=== PATIENT | female | born 2000 | race Caucasian/White ===

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

== ENCOUNTER 2022-08-12 14:38 | Emergency (ER) | payer BC, SELFPAY ==
[2022-08-12 14:41] VITALS: BP 123/81; PULSE 90; RESP 18; TEMP 37.2; O2SAT 98
[2022-08-12 15:14] VITALS: RESP 16
[2022-08-12 15:59] LABS: Abs Immature Grans 0.01 10^3/uL (0.0-0.06); Absolute Basophil Count 0.04 10^3/uL (0.0-0.2); Absolute Eosinophil Count 0.06 10^3/uL (0.0-0.7); Absolute Lymphocyte Count 1.59 10^3/uL (1.2-3.4); Absolute Monocyte Count 0.48 10^3/uL (0.1-0.8); Absolute Neutrophil Count 2.68 10^3/uL (1.2-6.7); Basophils % 0.8; Eosinophils % 1.2; HCT 33.3 % (36.0-46.0); HGB 11.4 g/dL (11.2-15.7); Immature Grans % 0.2; Lymphocytes % 32.7; MCH 29.9 pg (27.0-33.0); MCHC 34.2 % (32.0-36.0); MCV 87 fL (80-95); MPV 8.9 fL (8.0-11.0); Monocytes % 9.9; Neutrophils % 55.2; Platelet Count 252 10^3/uL (130-400); RBC 3.81 10^6/uL (3.93-5.22); RDW 12.3 % (11.7-14.6); RDW-SD 39.5 fL; WBC 4.86 10^3/uL (4.4-10.8)
[2022-08-12 16:19] LABS: ALT 28 U/L (14-59); AST 18 U/L (15-37); Alkaline Phosphatase 76 U/L (46-116); Anion Gap 10.1 mmol/L (3-11); BUN 10 mg/dL (7-18); Bilirubin, Total 0.3 mg/dL (0.2-1.0); CO2 28.9 mmol/L (21.0-32.0); CREATININE 0.8 mg/dL (0.55-1.02); Chloride 111 mmol/L (98-107); Estimated GFR 108.11 (mL/min/1.73m2); Glucose 87 mg/dL (74-106); Magnesium 1.6 mg/dL (1.8-2.4); Potassium 4.1 mmol/L (3.5-5.1); Sodium 150 mmol/L (136-145); Total Protein 7.7 g/dL (6.4-8.2)
--- NOTE | 2022-08-12 16:19 | ED.GENADUL_ITS ---
Discharge Plan Disposition Patient Disposition: Home Condition: Stable Discharge Details Clinical Impression: Acute hypernatremia, Hypomagnesemia Primary Care Provider: Aniya Saravia ED Provider: Flor Humphries Home Meds and New Rx's Prescriptions: Continued bupropion HCl 75 mg tablet 75 mg PO DAILY sertraline [Zoloft] 25 mg tablet 100 mg PO DAILY Nexplanon 68 mg Implant 1 implant SUBDERMAL DIRECTED No Action doxycycline hyclate 100 mg capsule 100 mg PO BID Qty: 42 0RF Discharge Instructions Instructions: Hypomagnesemia (ED) Additional Instructions: Today your sodium level was slightly elevated and your magnesium level is low. Please increase foods with high magnesium levels over the next few days and increase your water intake. No significant evidence for major bleeding requiring emergent blood transfusion. No signs of infection. No evidence for . Follow up with primary care provider in 3-5 days. Return to ED sooner if any worsening or concerns. Increase oral fluids. Stand Alone Forms: Work Release Referrals: Aniya Saravia [Primary Care Provider] - 3 days Discharge Data Discharge Date/Time-TO BE ENTERED AT DEPARTURE: 08/12/22 17:39 Medical Decision Making 22-year-old female with a past medical history of migraines presents to the ER with a chief complaint of lower back pain, diarrhea and had an episode of bright red blood per rectum. CBC CMP urinalysis magnesium hCG quant ordered by my colleague. CBC shows RBCs 3.81 hemoglobin 11.4 hematocrit 33.3, sodium is 150 potassium 4.1 chloride 111 m agnesium 1.6 hCG quant is less than 1. Urinalysis is within normal limits. Discussed results with patient who verbalized understanding. Instructed to follow-up with PCP or to return if any symptoms worse she verbalizes understanding. This text was generated using [employer]fol[employer]ation system, please disregard any oddities of phrase or misspellings. Lab Data Lab results reviewed: Yes I reviewed the patient's lab results. Labs: Laboratory Tests Range/Units 08/12/22 08/12/22 08/12/22 15:50 15:50 16:15 WBC (4.4-10.8) 10^3/uL 4.86 RBC (3.93-5.22) 10^6/uL 3.81 L Hgb (11.2-15.7) g/dL 11.4 Hct (36.0-46.0) % 33.3 L MCV (80-95) fL 87 MCH (27.0-33.0) pg 29.9 MCHC (32.0-36.0) % 34.2 RDW (11.7-14.6) % 12.3 Plt Count (130-400) 10^3/uL 252 MPV (8.0-11.0) fL 8.9 Immature Gran % 0.2 Neutrophils % 55.2 Lymphocytes % 32.7 Monocytes % 9.9 Eosinophils % 1.2 Basophils % 0.8 Nucleated RBC % (0.0-0.3) % 0.0 Absolute Neutrophils (1.2-6.7) 10^3/uL 2.68 Absolute Lymphocytes (1.2-3.4) 10^3/uL 1.59 Absolute Monocytes (0.1-0.8) 10^3/uL 0.48 Absolute Eosinophils (0.0-0.7) 10^3/uL 0.06 Absolute Basophils (0.0-0.2) 10^3/uL 0.04 Sodium (136-145) mmol/L 150 H Potassium (3.5-5.1) mmol/L 4.1 Chloride (98-107) mmol/L 111 H Carbon Dioxide (21.0-32.0) mmol/L 28.9 Anion Gap (3-11) mmol/L 10.1 BUN (7-18) mg/dL 10 Creatinine (0.55-1.02) mg/dL 0.8 Est GFR (CKD-EPI 2020) (mL/min/1.73m2) 108.11 Glucose (74-106) mg/dL 87 Calcium (8.5-10.1) mg/dL 9.0 Magnesium (1.8-2.4) mg/dL 1.6 L Total Bilirubin (0.2-1.0) mg/dL 0.3 AST (15-37) U/L 18 ALT (14-59) U/L 28 Alkaline Phosphatase (46-116) U/L 76 Total Protein (6.4-8.2) g/dL 7.7 Albumin (3.4-5.0) g/dL 4.0 Beta HCG, Quant (1-3) mIU/mL < 1 L Urine Color (Yellow) Yellow Urine Clarity (Clear) Clear Urine pH (5-8) 7.0 Ur Specific [place] (1.005-1.025) 1.015 Urine Protein (Negative) mg/dL Negative Urine Ketones (Negative) mg/dL Negative Urine Blood (Negative) Negative Urine Nitrite (Negative) Negative Urine Bilirubin (Negative) Negative Urine Urobilinogen (Up to 0.2) mg/dL 0.2 Ur Leukocyte Esterase (Negative) Negative Urine Glucose (Negative) mg/dL Negative HPI General Mode of arrival: ambulatory . Date/Time Provider Initiated Documentation: 08/12/22 14:51 . Limitations to Documentation: no limitations . Information obtained by: patient, RN notes reviewed and old records reviewed . HPI Narrative: 22-year-old female with a past medical history of migraines presents to the ER with a chief complaint of lower back pain, diarrhea and had an episode of bright red blood per rectum. And according to her RN note fever on and off for few days which she did not mention to me. She denies any problems urinating or burning with urination. She does have a little bit of nausea which has resolved. She did take ibuprofen prior to arrival. Other past medical history include anxiety and depression. She endorses occasional alcohol denies any drugs. Related Data Home Medications Medication Instructions Recorded Confirmed etonogestrel 68 mg subdermal 1 implant subdermal DIRECTED 10/18/20 08/12/22 implant (Nexplanon) bupropion HCl 75 mg tablet 75 mg PO DAILY 06/08/21 08/12/22 sertraline 25 mg tablet (Zoloft) 100 mg PO DAILY 06/08/21 08/12/22 doxycycline hyclate 100 mg capsule 100 mg PO BID #42 caps 08/07/22 08/12/22 Previous Rx's Medication Instructions Recorded doxycycline hyclate 100 mg capsule 100 mg PO BID #42 caps 08/07/22 Allergies Allergy/AdvReac Type Severity Reaction Status Date / Time risperidone AdvReac Verified 08/07/22 14:40 General Stated Complaint: GenMedical ANA: 3 Review of Systems All systems reviewed & are unremarkable except as noted in HPI and below Gastrointestinal Gastrointestinal: Reports hematochezia, Reports diarrhea and Reports nausea Musculoskeletal Musculoskeletal: Reports back pain PFSH All Active Problems (Updated 08/12/22 @ 17:16 by Flor Humphries NP) Acute hypernatremia (Acute) Hypomagnesemia (Acute) Migraine headache without aura (Acute) Migraine headache with aura (Acute) Chronic headache (Acute) Medical History Anxiety Depression Surgical History No significant past surgical history Social History Smoking/Tobacco Use Status: Never Smoking risk assessment performed?: Yes Alcohol Intake: current Alcohol Intake frequency: a few times a month Alcohol type: beer, wine and hard liquor Drug use: Occasionally Substance use type: marijuana Number of Children: 0 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 Appears stated age. Normal body habitus. Head: Normocephalic, no trauma. Eyes: Pupils PERRL, Red reflex noted, EOM's intact. Eyelids symmetrical without lesions, discharge, or swelling. ENT: Bilateral TM's WNL, External ear normal to inspection, no mastoid TTP, swelling, or erythema, Nasal turbinates WNL, no nasal discharge. Normal dentition, Posterior pharynx WNL, no exudate. Chest: RRR, Normal S1, S2, distal pulses intact. Resp: Lungs clear to auscultation bilaterally, no wheezes, rales, or rhonchi. Abdomen: Soft, non-distended, Normoactive bowel sounds all 4 quads. Musculoskeletal: Normal gait, 5/5 strength to all four extremities. Skin: No suspicious rashes or lesions. Capillary refill less than 2 sec. Neurologic: Cranial nerves II-XII intact. Alert and oriented x 3. Motor: No deficits noted. Sensory: Intact bilaterally all 4 extremities. Reflexes: DTR's intact bilaterally.. Hematologic/Lymphatic: No ecchymosis, no lymphadenopathy. Course Vital Signs Vital signs: Vital Signs Temperature 37.2 C 08/12/22 14:41 Pulse 90 08/12/22 14:41 Respiratory Rate 18 08/12/22 14:41 Blood Pressure 123/81 08/12/22 14:41 Pulse Oximetry 98 08/12/22 14:41 Temperature 37.2 C 08/12/22 14:41 Temperature Source Oral 08/12/22 14:41 Pulse 90 08/12/22 14:41 Respiratory Rate 16 08/12/22 15:14 Respiratory Effort Normal, Non-Labored 08/12/22 15:14 Respiratory Depth Normal 08/12/22 15:14 Respiratory Pattern Normal 08/12/22 15:14 Blood Pressure 123/81 08/12/22 14:41 Blood Pressure Position Sitting 08/12/22 14:41 Pulse Oximetry 98 08/12/22 14:41 Oxygen Delivery Method Room Air 08/12/22 14:41 Oxygen Flow Rate 0 08/12/22 14:41 Lab/Test Results Lab/Test Results: Laboratory Tests Range/Units 08/12/22 15:50 WBC (4.4-10.8) 10^3/uL 4.86 RBC (3.93-5.22) 10^6/uL 3.81 L Hgb (11.2-15.7) g/dL 11.4 Hct (36.0-46.0) % 33.3 L MCV (80-95) fL 87 MCH (27.0-33.0) pg 29.9 MCHC (32.0-36.0) % 34.2 RDW (11.7-14.6) % 12.3 Plt Count (130-400) 10^3/uL 252 MPV (8.0-11.0) fL 8.9 Immature Gran % 0.2 Neutrophils % 55.2 Lymphocytes % 32.7 Monocytes % 9.9 Eosinophils % 1.2 Basophils % 0.8 Nucleated RBC % (0.0-0.3) % 0.0 Absolute Neutrophils (1.2-6.7) 10^3/uL 2.68 Absolute Lymphocytes (1.2-3.4) 10^3/uL 1.59 Absolute Monocytes (0.1-0.8) 10^3/uL 0.48 Absolute Eosinophils (0.0-0.7) 10^3/uL 0.06 Absolute Basophils (0.0-0.2) 10^3/uL 0.04
[2022-08-12 16:20] LABS: HCG Quant, Pregnancy < 1 mIU/mL (1-3)
[2022-08-12] MEDS: Magnesium Oxide 400 MG TAB PO (16:47)
[2022-08-12] MEDS: Ondansetron O.D.T. 4 MG TABEF PO (16:47)
[2022-08-12 17:08] LABS: Bilirubin Negative (Negative); Blood Negative (Negative); Clarity Clear (Clear); Glucose Negative (Negative); Ketones Negative (Negative); Leukocyte Esterase Negative (Negative); Nitrite Negative (Negative); Specific Gravity 1.015 (1.005-1.025); Urobilinogen 0.2 mg/dL (Up to 0.2)
== END 2022-08-12 17:39 | disposition home or self-care (01) ==
PROVIDERS: Nurse Practitioner Family; Emergency Provider Registered Nurse Emergency; PCP Physician Assistant Medical
DX: R10.9 Unspecified abdominal pain (principal); M54.59 Other low back pain; R50.9 Fever, unspecified; R19.7 Diarrhea, unspecified; E83.42 Hypomagnesemia; E87.0 Hyperosmolality and hypernatremia
CPT/HCPCS: 80053; 81025; 99283; 81003; 83735; 84702; 85025; 99284

== ENCOUNTER 2022-09-12 12:06 | Outpatient (REF) | payer BC, SELFPAY ==
[2022-09-12 21:20] LABS: Abs Immature Grans 0.03 10^3/uL (0.0-0.06); Absolute Basophil Count 0.03 10^3/uL (0.0-0.2); Absolute Eosinophil Count 0.07 10^3/uL (0.0-0.7); Absolute Monocyte Count 0.57 10^3/uL (0.1-0.8); Absolute Neutrophil Count 6.38 10^3/uL (1.2-6.7); Basophils % 0.4; Eosinophils % 0.8; HCT 36.5 % (36.0-46.0); HGB 12.3 g/dL (11.2-15.7); Immature Grans % 0.4; Lymphocytes % 16.5; MCH 29.6 pg (27.0-33.0); MCHC 33.7 % (32.0-36.0); MCV 88 fL (80-95); MPV 9.8 fL (8.0-11.0); Monocytes % 6.7; Neutrophils % 75.2; Platelet Count 313 10^3/uL (130-400); RBC 4.16 10^6/uL (3.93-5.22); RDW 12.1 % (11.7-14.6); RDW-SD 39.3 fL; WBC 8.48 10^3/uL (4.4-10.8)
[2022-09-12 21:57] LABS: ALT 25 U/L (14-59); AST 15 U/L (15-37); Albumin 4.3 g/dL (3.4-5.0); Alkaline Phosphatase 82 U/L (46-116); Anion Gap 8.2 mmol/L (3-11); BUN 11 mg/dL (7-18); Bilirubin, Total 0.3 mg/dL (0.2-1.0); CO2 28.8 mmol/L (21.0-32.0); CREATININE 0.8 mg/dL (0.55-1.02); Calcium 9.4 mg/dL (8.5-10.1); Chloride 106 mmol/L (98-107); Estimated GFR 108.11 (mL/min/1.73m2); Glucose 76 mg/dL (74-106); Potassium 3.8 mmol/L (3.5-5.1); Sodium 143 mmol/L (136-145); Total Protein 7.8 g/dL (6.4-8.2)
[2022-09-14 09:53] LABS: HIV-1/2 Ag & Ab Screen Negative (Negative)
[2022-09-14 11:00] LABS: Lyme Ab w Rflx to Lyme Confirm Negative (Negative)
[2022-09-19 13:50] LABS: Anaplasma phagocytophilum Negative (Negative); B. miyamotoi PCR Negative (Negative); Babesia divergens/MO-1 Negative (Negative); Babesia duncani Negative (Negative); Babesia microti Negative (Negative); Ehrlichia chaffeensis Negative (Negative); Ehrlichia ewingii/canis Negative (Negative); Ehrlichia muris eauclairensis Negative (Negative)
== END 2022-09-12 12:07 | disposition home or self-care (01) ==
LOC: LBN 12:06
PROVIDERS: PCP Physician Assistant Medical; Visit Provider Physician Assistant
DX: R50.9 Fever, unspecified (principal); R53.83 Other fatigue; M79.18 Myalgia, other site; Z11.4 Encounter for screening for human immunodeficiency virus [HIV]
CPT/HCPCS: 80053; 87389; 87798; 85025; 86618

== ENCOUNTER 2023-06-12 17:27 | Outpatient (REF) | payer BC, SELFPAY ==
[2023-06-12 21:02] LABS: Abs Immature Grans 0.01 10^3/uL (0.0-0.06); Absolute Basophil Count 0.04 10^3/uL (0.0-0.2); Absolute Eosinophil Count 0.04 10^3/uL (0.0-0.7); Absolute Lymphocyte Count 1.47 10^3/uL (1.2-3.4); Absolute Monocyte Count 0.32 10^3/uL (0.1-0.8); Absolute Neutrophil Count 3.41 10^3/uL (1.2-6.7); Basophils % 0.8; Eosinophils % 0.8; HCT 36.8 % (36.0-46.0); HGB 12.6 g/dL (11.2-15.7); Immature Grans % 0.2; Lymphocytes % 27.8; MCH 29.4 pg (27.0-33.0); MCHC 34.2 % (32.0-36.0); MCV 86 fL (80-95); MPV 10.1 fL (8.0-11.0); Neutrophils % 64.4; Platelet Count 261 10^3/uL (130-400); RBC 4.28 10^6/uL (3.93-5.22); RDW 11.6 % (11.7-14.6); RDW-SD 35.9 fL; WBC 5.29 10^3/uL (4.4-10.8)
[2023-06-12 21:20] LABS: ALT 20 U/L (14-59); AST 14 U/L (15-37); Albumin 4.7 g/dL (3.4-5.0); Alkaline Phosphatase 67 U/L (46-116); Anion Gap 14.1 mmol/L (3-11); BUN 10 mg/dL (7-18); Bilirubin, Total 0.8 mg/dL (0.2-1.0); CO2 25.9 mmol/L (21.0-32.0); CREATININE 0.8 mg/dL (0.55-1.02); Chloride 102 mmol/L (98-107); Estimated GFR 107.44 (mL/min/1.73m2); Glucose 87 mg/dL (74-106); Lipase 24 U/L (16-77); Potassium 3.6 mmol/L (3.5-5.1); Sodium 142 mmol/L (136-145); Total Protein 8.3 g/dL (6.4-8.2)
[2023-06-13 19:05] LABS: HIV-1/2 Ag & Ab Screen Negative (Negative)
[2023-06-14 11:01] LABS: Syphilis Serology (RPR) Negative (Negative)
[2023-06-14 14:48] LABS: Chlamydia Result Negative (Negative); GC Result Negative (Negative)
[2023-06-15 11:50] LABS: HSV Type 1 Ab, IgG Negative (Negative); HSV Type 2 Ab, IgG Negative (Negative)
== END 2023-06-12 17:28 | disposition home or self-care (01) ==
LOC: LBN 17:27
PROVIDERS: PCP Physician Assistant Medical; Visit Provider Nurse Practitioner Family
DX: Z20.2 Contact with and (suspected) exposure to infections with a predominantly sexual mode of transmission (principal); Z11.3 Encounter for screening for infections with a predominantly sexual mode of transmission
CPT/HCPCS: 80053; 83690; 87389; 87491; 87591; 85025; 86592; 86695; 86696